=== PATIENT | male | born 1975 | race Two or more races ===

== ENCOUNTER → 2016-05-09 | Outpatient (CLI) | payer OTHER, MEDICARE ==
[~2016-05-09] MED LIST: FOLI-115 PO; IBUP-1547 PO
== END | disposition home or self-care (01) ==
LOC: RADPV 10:57
PROVIDERS: ATTEND Orthopaedic Surgery
DX: Z51.89 Encounter for other specified aftercare (principal); M60.872 Other myositis, left ankle and foot